=== PATIENT | female | born 1995 | race Caucasian/White ===

== ENCOUNTER 2016-12-01 00:56 | Emergency (ER) | payer BC, OTHER ==
[~2016-12-01] VITALS: Ht 154.9 cm; Wt 59.0 kg
[2016-12-01 02:45] VITALS: BP 130/91
== END 2016-12-01 02:30 | disposition home or self-care (01) ==
LOC: ER 00:56
DX: T42.4X1A Poisoning by benzodiazepines, accidental (unintentional), initial encounter (principal); F41.9 Anxiety disorder, unspecified; F90.9 Attention-deficit hyperactivity disorder, unspecified type; F10.99 Alcohol use, unspecified with unspecified alcohol-induced disorder; Y92.89 Other specified places as the place of occurrence of the external cause